=== PATIENT | male | born 1990 | race Two or more races ===

== ENCOUNTER 2023-01-08 12:01 | Emergency (ER) | payer SELFPAY ==
[~2023-01-08] VITALS: Ht 170.2 cm; Wt 83.0 kg
[2023-01-08 12:02] VITALS: TEMP 98.4
[2023-01-08] MEDS ORDERED: OxyCODONE HCL/ACETAMINOPHEN 5-325 MG TABLET PO ONE (12:45)
[2023-01-08] MEDS ORDERED: PERTUSS(ACELL),DIPH,TET VAC/PF 0.5 ML SYRINGE IM. ONE (14:30)
[2023-01-08] MEDS ORDERED: LIDOCAINE 1% 10 ML VIAL SQ ONE (15:00)
[2023-01-08] MEDS ORDERED: CeFAZolin SODIUM 1 GM VIAL IM ONE (15:00)
[2023-01-08] MEDS ORDERED: IBUP-1492 PO (15:50)
[2023-01-08] MEDS ORDERED: OXYC5 PO (15:50)
[2023-01-08] MEDS ORDERED: CEPH-558 PO (15:50)
[2023-01-08] MEDS ORDERED: BACITRACIN 0.9 GM PACKET OINTMENT TP ONE (16:00)
[2023-01-08 16:28] VITALS: BP 128/69; PULSE 77; RESP 18
== END 2023-01-08 16:43 | disposition home or self-care (01) ==
LOC: EMS 12:02
DX: S61.412A Laceration without foreign body of left hand, initial encounter (principal); F17.210 Nicotine dependence, cigarettes, uncomplicated; F12.90 Cannabis use, unspecified, uncomplicated; X58.XXXA Exposure to other specified factors, initial encounter; Y93.89 Activity, other specified; Y92.89 Other specified places as the place of occurrence of the external cause; Y99.8 Other external cause status
CPT/HCPCS: 99284; 73130; 90715; 90471; 12002; 96372; J0690; J3490